=== PATIENT | female | born 1980 | race Caucasian/White ===

== ENCOUNTER → 2017-05-13 | Outpatient (CLI) | payer OTHER ==
[~2017-05-13] MED LIST: CLARITIN 1010 MG/TAB PO; MOTRIN 600600 MG/TAB PO; PERCOCET 500 MG1 TAB PO; PRENATAL VITAMI1 TA5 PO; SYNTHROID0.125 MG/T PO
== END ==
LOC: COL.RAD 10:15
DX: K22.4 Dyskinesia of esophagus (principal)

== ENCOUNTER → 2020-05-22 | Outpatient (CLI) | payer OTHER | LOC: MC.RAD 11:45 | DX: Z12.31 Encounter for screening mammogram for malignant neoplasm of breast (principal) ==

== ENCOUNTER → 2021-07-03 | Outpatient (CLI) | payer OTHER | LOC: MC.RAD 08:15 | DX: Z12.31 Encounter for screening mammogram for malignant neoplasm of breast (principal) ==

== ENCOUNTER → 2024-06-02 | Outpatient (CLI) | payer BC ==
[~2024-06-02] MED LIST changes: +Gadoterate 15 ML VIAL IV ONE
== END ==
LOC: COL.RAD 11:49
DX: H91.90 Unspecified hearing loss, unspecified ear (principal)
CPT/HCPCS: A9575